=== PATIENT | male | born 1975 | race Caucasian/White ===

== ENCOUNTER 2022-12-23 13:33 | Emergency (ER) | payer SELFPAY ==
[~2022-12-23] VITALS: Ht 177.8 cm; Wt 103.0 kg
[2022-12-23] MEDS ORDERED: IBUPROFEN 600MG TABLET PO ONE (15:00)
[2022-12-23 15:23] VITALS: BP 139/84
[2022-12-23 17:23] LABS: BASOPHILS % 0.3 % (0.0-2.0); EOSINOPHILS % 0.3 % (0.0-5.0); HEMATOCRIT. 45.4 % (42.0-52.0); HEMOGLOBIN. 15.6 g/dL (14.0-18.0); LYMPHOCYTES % 13.7 % (20.0-50.0); MEAN CORPUSCULAR HEMOGLOBIN 30.4 pg (28.0-32.0); MEAN CORPUSCULAR VOLUME 88.3 fL (80.0-94.0); MEAN PLATELET VOLUME 8.1 fl (7.4-10.4); NEUTROPHILS % 76.7 % (40.0-76.0); PLATELET 231 x1000/uL (130-400); RED BLOOD CELL COUNT 5.14 mill/uL (4.7-6.1); RED CELL DISTRIBUTION WIDTH 12.9 % (11.6-14.6)
[2022-12-23 17:25] LABS: CHLORIDE 101 mEq/L (98-107)
[2022-12-23] MEDS ORDERED: IBUP-2029 PO (17:50)
[2022-12-23] MEDS ORDERED: MECL-159 PO (17:50)
== END 2022-12-23 18:45 | disposition home or self-care (01) ==
LOC: ER 13:45
DX: R42 Dizziness and giddiness (principal); R53.1 Weakness; M54.9 Dorsalgia, unspecified
CPT/HCPCS: 36415; 80053; 85025; 99283